=== PATIENT | female | born 2000 | race Caucasian/White ===

== ENCOUNTER 2022-04-12 21:41 | Emergency (ER) | payer OTHER, SELFPAY ==
[2022-04-12] VITALS (17 sets, daily range): BP systolic 91–140; BP diastolic 65–100; PULSE 82; RESP 18; TEMP 36.4; O2SAT 98–100
[2022-04-12 22:28] LABS: Alanine Aminotransferase 13 U/L (6-35); Albumin Level 4.2 g/dL (3.5-5.1); Alkaline Phosphatase 57 U/L (38-126); Anion Gap 6 mmol/L (8-16); Aspartate Amino Transferase 22 U/L (14-36); Bilirubin,Total 0.2 mg/dL (0.2-1.3); Blood Urea Nitrogen 12 mg/dL (7-17); Calcium 8.6 mg/dL (8.4-10.2); Carbon Dioxide 25 mmol/L (22-30); Chloride 107 mmol/L (98-107); Estimated Glomerular Filt Rate > 60; Glucose 104 mg/dL (65-110); Magnesium 1.9 mg/dL (1.6-2.3); Potassium 4.1 mmol/L (3.4-5.0); Sodium 138 mmol/L (137-145)
--- NOTE | 2022-04-12 23:52 | ED.EXTPRO ---
HPI - Extremity Problem General Chief complaint: Extremity Problem,Nontraumatic Stated complaint: bilateral leg pain Time Seen by Provider: 04/12/22 22:00 History of Present Illness HPI Narrative: Patient is a 22-year-old female who presents the ER with muscle cramps and spasms. Has been in her leg as well as her neck and back. She was seen at an outside hospital and diagnosed with hypokalemia and hypomagnesemia. She was started on supplementation. She continues to have some cramping. No recent injury or overexertion. Related Data Home Medications Medication Instructions Recorded Confirmed K+ Potassium 99 mg PO DAILY 04/12/22 04/12/22 magnesium 165 mg PO DAILY 04/12/22 04/12/22 Allergies Allergy/AdvReac Type Severity Reaction Status Date / Time No Known Allergies Allergy Verified 04/12/22 22:08 Review of Systems Review of Systems: All systems reviewed & are unremarkable except as noted in HPI and below Constitutional: Constitutional: Denies chills, Denies fatigue and Denies fever(s) Cardiovascular: Cardiovascular: Denies chest pain and Denies radiating jaw, neck or arm pain Respiratory: Respiratory: Denies cough and Denies dyspnea Gastrointestinal: Gastrointestinal: Denies abdominal pain, Denies nausea and Denies vomiting Musculoskeletal: Musculoskeletal: Reports back pain, Denies arthralgias, Denies joint swelling and Reports muscle cramps PMFSH Past Medical History Medical History (Updated 04/13/22 @ 07:29 by Madhu Nguyễn MD) Healthy female adult Surgical History Surgical History (Updated 04/13/22 @ 07:29 by Madhu Nguyễn MD) No pertinent past surgical history Exam Narrative: GENERAL: Well-appearing, well-nourished, and in no acute distress. HEAD: Normocephalic, atraumatic. EYES: PERRL and EOMI. NECK: Supple. Trapezius muscle spasm left side. CHEST: Clear to auscultation. No respiratory distress. HEART: Regular rate and rhythm. Normal peripheral pulses. EXTREMITIES: Normal range of motion. No edema. SKIN: Warm, dry, no rash. NEURO: Alert and oriented x3. PSYCH: Normal mood and affect. Course Course Emergency Course: Resting comfortably. Informed of results. Feels improved with less boxers. Discharge home with cyclobenzaprine. Vital Signs Vital signs: Vital Signs Temperature 97.6 F 04/12/22 21:46 Pulse Rate 82 04/12/22 21:46 Respiratory Rate 18 04/12/22 21:46 Blood Pressure 140/100 H 04/12/22 21:46 Pulse Oximetry 99 04/12/22 21:46 Temperature 97.6 F 04/12/22 21:46 Pulse Rate 82 04/12/22 21:46 Respiratory Rate 18 04/12/22 21:46 Blood Pressure 118/88 04/13/22 00:16 Pulse Oximetry 100 04/13/22 00:16 MDM - Extremity (Nontraumatic) Lab Data 04/12/22 22:08 Labs: Lab Results 04/12/22 04/12/22 Range/Units 22:08 22:08 Sodium 138 (137-145) mmol/L Potassium 4.1 (3.4-5.0) mmol/L Chloride 107 (98-107) mmol/L Carbon Dioxide 25 (22-30) mmol/L Anion Gap 6 L (8-16) mmol/L BUN 12 (7-17) mg/dL Creatinine 0.70 (0.7-1.0) mg/dL Estim Creat Clear Calc Not Reportable Estimated GFR > 60 (59 - ) Glucose 104 (65-110) mg/dL Calcium 8.6 (8.4-10.2) mg/dL Magnesium 1.9 Cancelled (1.6-2.3) mg/dL Total Bilirubin 0.2 (0.2-1.3) mg/dL AST 22 (14-36) U/L ALT 13 (6-35) U/L Alkaline Phosphatase 57 (38-126) U/L Total Protein 8.0 (6.3-8.2) g/dL Albumin 4.2 (3.5-5.1) g/dL Discharge Plan Discharge Clinical Impression: Muscle spasm Patient Disposition: Home, Self-Care Condition: Stable Instructions: Muscle Spasm (ED) Additional Instructions: Return the ER if you have fever over 100.4 ?F, cracking sounds with water, you have chest pain or shortness of breath, you have additional concerns. Prescriptions: New cyclobenzaprine 10 mg tablet 10 mg PO TID PRN (Reason: muscle spasm) Qty: 20 0RF No Action K+ Potassium 99 mg PO DA
[2022-04-13] VITALS: O2SAT 100
[2022-04-13 00:01] VITALS: BP 115/65; O2SAT 100
[2022-04-13 00:15] VITALS: O2SAT 100
[2022-04-13 00:16] VITALS: BP 118/88; O2SAT 100
== END 2022-04-13 00:23 | disposition home or self-care (01) ==
PROVIDERS: Emergency Provider Emergency Medicine
DX: M62.838 Other muscle spasm (principal)
CPT/HCPCS: 36415; 80053; 83735; 99283

== ENCOUNTER 2023-03-27 02:58 | Emergency (ER) | payer OTHER, SELFPAY ==
[2023-03-27] VITALS (7 sets, daily range): BP systolic 124–148; BP diastolic 79–97; PULSE 73–104; RESP 16–18; TEMP 36.4–36.7; O2SAT 100
--- NOTE | ~2023-03-27 | XR_ITS ---
Portable chest x-ray Comparison: None Clinical History: Upper respiratory infection Findings: Lungs are clear, without focal consolidation or pleural effusion. Cardiomediastinal silho uette is unremarkable. Bones and soft tissues are unremarkable. Impression: Normal chest. Reviewed, dictated and finalized at [facility]. [employer] Impression: Normal chest.
[2023-03-27 04:01] LABS: Influenza A QL RT-PCR Negative (Negative); Influenza B QL RT-PCR Negative (Negative); RSV RNA, RT-PCR Negative (Negative); SARS-CoV-2 RNA PCR Negative (Negative)
[2023-03-27] MEDS: KETOROLAC 30 MG/ML VIAL (*BKC) IM (04:22)
[2023-03-27] MEDS: ACETAMINOPHEN 500 MG TABLET 1000 MG PO (04:22)
[2023-03-27 06:04] LABS: Appearance Urine Turbid (Clear); Bacteria Urine 1+ /hpf; Bilirubin Urine Negative (Negative); Blood Urine 3+ (Negative); Color Urine Yellow (Yellow); Glucose Urine UA Negative (Negative); Ketones Urine Negative (Negative); Leukocyte Esterase Ur 2+ LEU/UL (Negative); Need Manual Microscopic Reviewed; Nitrate Urine Negative (Negative); Non Pathogenic Casts 0-2; Protein Urine Trace mg/dL (Negative); RBC Urine 51-100 /hpf (0-2); Specific Grav Ur 1.019 (1.001-1.035); Squamous Epithelial Cell Urine Few /hpf (Few)
[2023-03-27 06:05] LABS: Add Urine Microscopic? YES
--- NOTE | 2023-03-27 06:18 | ED.GENADULT ---
HPI - General Adult General Chief complaint: Upper Respiratory Infection Stated complaint: flu-like symptoms Time Seen by Provider: 03/27/23 03:30 History of Present Illness HPI narrative: This is a 23-year-old female presenting with body aches, headaches and cough x3 days. She also notes she is having left-sided flank pain. Patient denies fevers, chest pain difficulty breathing or abdominal pain. Related Data Home Medications Medication Instructions Recorded Confirmed K+ Potassium 99 mg PO DAILY 04/12/22 04/12/22 magnesium 165 mg PO DAILY 04/12/22 04/12/22 Allergies Allergy/AdvReac Type Severity Reaction Status Date / Time No Known Allergies Allergy Verified 03/27/23 03:02 [facility] Past Medical History Medical History Healthy female adult Surgical History Surgical History No pertinent past surgical history Exam Narrative: APPEARANCE: No apparent distress. Head: atraumatic. EYES: EOMI, NOSE: Atraumatic NECK: Trachea midline RESPIRATORY: No increased rate of breathing clear to auscultation CARDIOVASCULAR: Tachycardic, no peripheral edema ABDOMINAL: Non-distended, soft nontender, left CVA tenderness MUSCULOSKELETAl: No obvious deformities NEURO: Alert. Moving 4/4 extremities SKIN:: Warm, dry. Normal color PSYCHIATRIC: Normal affect Course Vital Signs Vital signs: Vital Signs Temperature 97.5 F L 03/27/23 03:00 Pulse Rate 104 H 03/27/23 03:00 Respiratory Rate 16 03/27/23 03:00 Blood Pressure 148/88 H 03/27/23 03:00 Pulse Oximetry 100 03/27/23 03:00 Oxygen Delivery Room Air 03/27/23 03:00 Temperature 98.1 F 03/27/23 07:13 Pulse Rate 73 03/27/23 07:13 Respiratory Rate 18 03/27/23 07:13 Blood Pressure 124/79 03/27/23 07:13 Pulse Oximetry 100 03/27/23 07:16 Oxygen Delivery Room Air 03/27/23 07:16 Medical Decision Making [facility] Narrative Medical decision making narrative: -Course: 23-year-old female presenting with flu-like symptoms. Patient is also in some left-sided CVA tenderness. Viral swabs were negative but her urine was indicative of infection. She will be treated for pyelonephritis. Patient is very well-appearing is good candidate for outpatient management. She will be given a 10 day course of Keflex and discharged with return precautions. -DDX includes but is not limited to: Viral syndrome, pneumonia, -Social determinants of health: Home health provider -Independent interpretation of studies: A viral swabs negative, chest x-ray negative. Urine take it of infection. -Interventions: Toradol, Tylenol -Shared decision making / Disposition: Discharged -RX Keflex 500 mg b.i.d. times 10 days Vital Signs Vital Signs: Vital Signs Temperature 97.5 F L 03/27/23 03:00 Pulse Rate 104 H 03/27/23 03:00 Respiratory Rate 16 03/27/23 03:00 Blood Pressure 148/88 H 03/27/23 03:00 Pulse Oximetry 100 03/27/23 03:00 Oxygen Delivery Room Air 03/27/23 03:00 Temperature 98.1 F 03/27/23 07:13 Pulse Rate 73 03/27/23 07:13 Respiratory Rate 18 03/27/23 07:13 Blood Pressure 124/79 03/27/23 07:13 Pulse Oximetry 100 03/27/23 07:16 Oxygen Delivery Room Air 03/27/23 07:16 Lab Data Labs: Lab Results 03/27/23 03/27/23 Range/Units 03:04 04:55 Urine Color Yellow (Yellow) Urine Appearance Turbid H (Clear) Urine pH 7.0 (5.0-9.0) Ur Specific Doss 1.019 (1.001-1.035) Urine Protein Trace (Negative) mg/dL Urine Glucose (UA) Negative (Negative) mg/dL Urine Ketones Negative (Negative) mg/dL Ur Blood (Man) 3+ H (Negative) Urine Nitrate Negative (Negative) Urine Bilirubin Negative (Negative) Urine Urobilinogen 1.0 (<2.0) mg/dL Add Ur Microanalysis Reviewed Leukocyte Esterase Rfl 2+ H (Negative) HEDY/UL Urine RBC 51-100 (0-2) /hpf Urine WBC 11
== END 2023-03-27 07:49 | disposition home or self-care (01) ==
PROVIDERS: Emergency Provider Emergency Medicine
DX: N12 Tubulo-interstitial nephritis, not specified as acute or chronic (principal); Z20.822 Contact with and (suspected) exposure to COVID-19
CPT/HCPCS: 71045; 81001; 87077; 87086; 87088; 87637; 96372; 99283; A9270; J1885